=== PATIENT | male | born 1970 | race Caucasian/White ===

== ENCOUNTER 2024-02-23 14:29 | Emergency (ER) | payer MEDICAID ==
[~2024-02-23] VITALS: Ht 175.3 cm; Wt 145.1 kg
[2024-02-23 14:39] VITALS: BP_SYST 190; PULSE 122; RESP 17; TEMP 98.2; O2SAT 97
[2024-02-23 15:31] VITALS: BP_SYST 145; PULSE 96; RESP 17; TEMP 98.2; O2SAT 97
== END 2024-02-23 15:30 | disposition home or self-care (01) ==
LOC: SED 14:29
DX: S06.0X0A Concussion without loss of consciousness, initial encounter (principal); Y04.0XXA Assault by unarmed brawl or fight, initial encounter; Y93.89 Activity, other specified; Y92.89 Other specified places as the place of occurrence of the external cause; Y99.8 Other external cause status
CPT/HCPCS: 70450-TC; 99284